=== PATIENT | male | born 1990 | race Two or more races ===

== ENCOUNTER 2024-04-27 13:41 | Emergency (ER) | payer OTHER ==
[~2024-04-27] VITALS: Ht 177.8 cm; Wt 65.0 kg
[2024-04-27 15:36] VITALS: PULSE 89; RESP 18; TEMP 98.2; O2SAT 96
[2024-04-27 15:55] VITALS: BP 123/91
[2024-04-27] MEDS: KETOROLAC TROMETH 60MG/2ML VIAL IM ONE (15:58)
[2024-04-27] MEDS: HYDROcodone-ACET 10/325MG TAB PO ONE (15:59)
[2024-04-27] MEDS ORDERED: TRAM-626 PO (16:29)
[2024-04-27] MEDS ORDERED: PRED20TA2 PO (16:29)
[2024-04-27 16:45] VITALS: PULSE 98; RESP 16; O2SAT 95
== END 2024-04-27 16:50 | disposition home or self-care (01) ==
LOC: ER 13:41
DX: M51.36 Other intervertebral disc degeneration, lumbar region (principal); M54.16 Radiculopathy, lumbar region; Z79.899 Other long term (current) drug therapy
CPT/HCPCS: 72100; 96372; 99283; J1885